=== PATIENT | female | born 1980 | race Caucasian/White ===

== ENCOUNTER 2016-09-29 12:23 | Emergency (ER) | payer MEDICAID, OTHER ==
[2016-09-29 14:08] VITALS: BP 148/92
[2016-09-29] MEDS ORDERED: Tetan/Diph/Pertus SYR(Tdap)* 0.5 ML SYR(BOOSTRIX) use SYR IM ONE (14:33)
--- NOTE | 2016-09-29 14:33 | UC ---
UC General HPI - HPI Summary HPI Summary: complaint of red area on buttocks that she noticed 2 days ago getting more red and bigger and more painful thinks she got a spider bite denies fever taking tylenol and ibuprofen for pain with some relief unsure about tetanus immunization - History of Current Complaint Chief Complaint: UC Stated Complaint: PERSONAL Time Seen by Provider: 09/29/16 14:17 Hx Obtained From: Patient - Allergy/Home Medications Allergies/Adverse Reactions: Allergies Allergy/AdvReac Type Severity Reaction Status Date / Time Bupropion [From Wellbutrin] Allergy Intermediate Hives Verified 09/29/16 14:08 Penicillins Allergy Intermediate Hives Verified 09/29/16 14:08 Home Medications: Home Medications Clonazepam [Klonopin] 0.5 mg PO SEE INSTRUCTIONS 09/29/16 [History Confirmed 03/08] PMH/Surg Hx/FS Hx/Imm Hx Previously Healthy: Yes Endocrine History Of: Reports: Thyroid Disease - thyroidectomy Denies: Diabetes Cardiovascular History Of: Denies: Cardiac Disorders, Hypertension, Pacemaker/ICD Respiratory History Of: Denies: COPD, Asthma GI/ History Of: Denies: Gastroesophageal Reflux, Ulcer Neurological History Of: Denies: TIA Psychological History Of: Reports: Anxiety Cancer History Of: Denies: Lung Cancer Other History Of: Negative For: HIV - Surgical History Surgical History: Yes Surgery Procedure, Year, and Place: novasure, c3 c4 fusion 05/2016 [facility]. . thyroidectomy - Family History Known Family History: Positive: Hypertension - Social History Occupation: Employed Full-time Lives: With Family Alcohol Use: Occasionally Alcohol Amount: 1-2 times a week Substance Use Type: Marijuana Substance Use Comment - Amount & Last Used: 09/24/16 Smoking Status (MU): Heavy Every Day Tobacco Smoker Type: Cigarettes Amount Used/How Often: 1.5 ppd Have You Smoked in the Last Year: Yes Household Exposure Type: Cigarettes - Immunization History Most Recent Influenza Vaccination: none Review of Systems Constitutional: Negative Skin: Other - spider bite Eyes: Negative ENT: Negative Respiratory: Negative Cardiovascular: Negative Gastrointestinal: Negative Genitourinary: Negative Motor: Negative Neurovascular: Negative Musculoskeletal: Negative Neurological: Negative Psychological: Negative All Other Systems Reviewed And Are Negative: Yes Physical Exam Triage Information Reviewed: Yes Appearance: No Pain Distress, Well-Nourished Vital Signs: Initial Vital Signs Temp 98.8 F 09/29/16 13:58 Pulse 116 09/29/16 13:58 Resp 18 09/29/16 13:58 BP 148/92 09/29/16 13:58 Pulse Ox 99 09/29/16 13:58 Vital Signs Reviewed: Yes Eyes: Positive: Conjunctiva Clear ENT: Positive: Normal ENT inspection Neck: Positive: No Lymphadenopathy Respiratory: Positive: Lungs clear, Normal breath sounds, No respiratory distress Cardiovascular: Positive: No Murmur, Pulses Normal, Tachycardia Abdomen Description: Positive: Nontender, Soft Bowel Sounds: Positive: Present Musculoskeletal: Positive: No Edema Neurological: Positive: Alert Psychological Exam: Normal Skin Exam: Other - right lower back 14cm x5cm area of erythema with abscess of 6cm x3cm in the center Procedures - Incision and Drainage Site: right lower back- large amount of serosanguinous exudate expressed- Anesthesia: Lidocaine Instrument(s): Scalpel Packing: Other - pressure dressing Course/Dx - Course Course Of Treatment: exam completed. I& D performed- pt tolerated well. will give tetanus and start bactrim. culture sent. will followup in 2 days with PCP for wound check - Differential Dx - Multi-Symptom Provider Diagnoses: abscess Discharge - Discharge Plan Condition: Stable Disposition: HOME Prescriptions: Sulfamethox/Trimethoprim DS* [Bactrim DS 800/160 TAB*] 1 tab PO BID #14 tab Patient Education Materials: Abscess (ED) Referrals: Sammie JIANG,Nico Quiros [Medical Doctor] - Non Staff,Doctor [Medical Doctor] - Additional Instructions: ABSCESS What is an Abscess? An abscess is a collection of pus caused by an infection. It may be a simple infected hair follicle, a boil, or an infection caused by a puncture wound, an untreated wound, or an abrasion. The abscess may come to a head and rupture. Sometimes the abscess may need to be cut open and drained to remove the pus and tissue. Symptoms May Include: Skin redness over the infected area Tight, glossy, "stretched" appearance of the skin Pain or tenderness of the area The affected area may be warm or hot to touch Thin red line (along a vein) from the abscess toward the heart Fever Treatment Recommendations: Apply warm wet compresses to the infected area several times a day. If a dressing was applied, keep it clean and dry. The healthcare provider may have prescribed an antibiotic medicine. The medicine should be taken until it is completely gone, even if you are feeling better. If you stop taking the medicine early, the infection may not be completely gone, and the medication may not work the next time. You should have the abscess rechecked by your healthcare provider as instructed by the emergency department healthcare provider. If a drain was put in the abscess, keep the dressing clean and dry. You may need to change the dressing if it becomes soaked with drainage. It is very important to follow-up with your own healthcare provider as directed. The drain should be removed and the wound rechecked in 2 to 3 days or as directed. Call Your Doctor or Return Here IF: You are not improving, or the abscess looks like it is getting worse. The wound turns red and starts to swell again, or there are red streaks coming from the wound. You develop a fever that does not go down when you take fever medicine such as acetaminophen (Tylenol). The wound continues to leak pus after the drain is removed. You have any new symptoms that worry you.
[2016-09-29] MEDS ORDERED: Lidocaine 2% W/EPI 1:100,000* 20 ML MDV ONE (14:50)
[2016-09-29] MEDS ORDERED: Acetaminophen TAB* 325 MG PO ONE (15:17)
== END 2016-09-29 15:25 | disposition home or self-care (01) ==
LOC: UCCORT 12:23
DX: L02.31 Cutaneous abscess of buttock (principal); F41.9 Anxiety disorder, unspecified; F12.90 Cannabis use, unspecified, uncomplicated; F17.210 Nicotine dependence, cigarettes, uncomplicated; Z88.0 Allergy status to penicillin; Z88.8 Allergy status to other drugs, medicaments and biological substances
CPT/HCPCS: 87070; 87077; 87186; 87205; 87640; 87641; 90471; 90715; 99212; A9270-GY; G0463

== ENCOUNTER 2017-02-20 10:14 | Emergency (ER) | payer OTHER ==
--- NOTE | 2017-02-20 11:30 | UC ---
Skin Complaint HPI - HPI Summary HPI Summary: 36 YEAR OLD PRESENTS WITH LEFT FOREARM SWELLING, TENDERNESS AND ERYTHEMA. - History of Current Complaint Time Seen by Provider: 02/20/17 11:25 Stated Complaint: SKIN CONCERN Hx Last Menstrual Period: n/a Onset/Duration: Sudden Onset Timing: Constant Onset Severity: Moderate Current Severity: Moderate Pain Scale Used: 0-10 Numeric - 5 - Allergy/Home Medications Allergies/Adverse Reactions: Allergies Allergy/AdvReac Type Severity Reaction Status Date / Time Bupropion [From Wellbutrin] Allergy Intermediate Hives Verified 09/29/16 14:08 Penicillins Allergy Intermediate Hives Verified 09/29/16 14:08 Review of Systems Constitutional: Negative Skin: Other - LEFT FOREARM SWELLING, ERYTHEMA, AND TENDER Eyes: Negative ENT: Negative Respiratory: Negative Cardiovascular: Negative Gastrointestinal: Negative Genitourinary: Negative Motor: Negative Neurovascular: Negative Musculoskeletal: Negative Neurological: Negative Psychological: Negative All Other Systems Reviewed And Are Negative: Yes PMH/Surg Hx/FS Hx/Imm Hx Other History Of: Negative For: HIV - Surgical History Surgical History: Yes Surgery Procedure, Year, and Place: novasure, c3 c4 fusion 05/2016 [facility]. . thyroidectomy - Family History Known Family History: Positive: Hypertension - Social History Alcohol Use: Occasionally Alcohol Amount: 1-2 times a week Substance Use Type: Marijuana Substance Use Comment - Amount & Last Used: 09/24/16 Smoking Status (MU): Heavy Every Day Tobacco Smoker Type: Cigarettes Amount Used/How Often: 1.5 ppd Have You Smoked in the Last Year: Yes Household Exposure Type: Cigarettes - Immunization History Most Recent Influenza Vaccination: none Physical Exam Triage Information Reviewed: Yes Eye Exam: Normal ENT Exam: Normal Dental Exam: Normal Neck exam: Normal Neck: Positive: 1 Respiratory Exam: Normal Cardiovascular Exam: Normal Abdominal Exam: Normal Musculoskeletal Exam: Normal Neurological Exam: Normal Psychological Exam: Normal Skin Exam: Other - LEFT FOREARM SWELLING, ERYTHEMA, AND TENDER Course/Dx - Differential Diagnoses - Skin Complaint Differential Diagnoses: Cellulitis - Diagnoses Provider Diagnoses: LEFT FOREARM CELLULITIS Discharge - Discharge Plan Condition: Stable Disposition: HOME Prescriptions: DOXYcycline CAP(*) [DOXYcycline 100MG CAP(*)] 100 mg PO BID #14 cap Silver Sulfadiazine 1%* [SILVadine 1%*] 1 applic TOPICAL BID #1 jar Patient Education Materials: Cellulitis (ED) Referrals: No Primary Care Phys,NOPCP [Medical Doctor] - If Needed
[2017-02-20 11:47] VITALS: BP 132/82
== END 2017-02-20 12:00 | disposition home or self-care (01) ==
LOC: UCCORT 10:14
DX: L03.114 Cellulitis of left upper limb (principal); F17.210 Nicotine dependence, cigarettes, uncomplicated
CPT/HCPCS: 99212; G0463

== ENCOUNTER 2017-03-20 13:06 | Emergency (ER) | payer OTHER ==
[2017-03-20 14:31] VITALS: BP 98/64
--- NOTE | 2017-03-20 14:57 | UC ---
Skin Complaint HPI - HPI Summary HPI Summary: patient was treated for an infection caused by a fish hook in the left arm on 02/20/17. she was responding well to the BX until 3 days ago, started getting red hot swollen arm, pain from shoulder to hand, fever, chills and her BP is low today. - History of Current Complaint Chief Complaint: UCSkin Time Seen by Provider: 03/20/17 14:40 Stated Complaint: SKIN COMPLAINT Hx Obtained From: Patient Hx Last Menstrual Period: 2 yrs ago - had novasure, embolization, & d&c ?: No Onset/Duration: Sudden Onset, Lasting Weeks Skin Exposure Onset/Duration: Weeks Ago Timing: Constant Onset Severity: Moderate Current Severity: Severe Location: Generalized - left arm Character: Swelling, Redness, Painful Aggravating: Touch Associated Signs & Symptoms: Positive: Weakness, Fever, Chills, Tenderness, Joint Swelling - left elbow Related History: Other: - fish hook - Allergy/Home Medications Allergies/Adverse Reactions: Allergies Allergy/AdvReac Type Severity Reaction Status Date / Time Bupropion [From Wellbutrin] Allergy Intermediate Hives Verified 03/20/17 14:23 Penicillins Allergy Intermediate Hives Verified 03/20/17 14:23 Home Medications: Home Medications Acetaminophen TAB* [Tylenol TAB*] 650 mg PO Q4H PRN 03/20/17 [History Confirmed 03/20/17] Ibuprofen TAB* [Advil TAB*] 800 mg PO Q6H PRN 03/20/17 [History Confirmed ] Review of Systems Constitutional: Fever, Chills, Fatigue Skin: Other - redness Eyes: Negative ENT: Negative Respiratory: Negative Cardiovascular: Negative Gastrointestinal: Negative Genitourinary: Negative Motor: Negative Neurovascular: Negative Musculoskeletal: Arthralgia, Decreased ROM, Edema, Myalgia Neurological: Headache Psychological: Negative All Other Systems Reviewed And Are Negative: Yes PMH/Surg Hx/FS Hx/Imm Hx Previously Healthy: Yes Other History Of: Negative For: HIV - Surgical History Surgical History: Yes Surgery Procedure, Year, and Place: novasure, c3 c4 fusion 05/2016 [place]. . thyroidectomy. right neck lymph node removal - Family History Known Family History: Positive: Hypertension - Social History Alcohol Use: None Alcohol Amount: 1-2 times a week Substance Use Type: None Substance Use Comment - Amount & Last Used: 2/2/17 Smoking Status (MU): Heavy Every Day Tobacco Smoker Type: Cigarettes Amount Used/How Often: 1.5 ppd Have You Smoked in the Last Year: Yes Household Exposure Type: Cigarettes - Immunization History Most Recent Influenza Vaccination: none Physical Exam Triage Information Reviewed: Yes Appearance: Well-Nourished, Ill-Appearing, Pain Distress Vital Signs: Initial Vital Signs Temp 98.9 F 03/20/17 14:24 Pulse 98 03/20/17 14:24 Resp 16 03/20/17 14:24 BP 98/64 03/20/17 14:24 Pulse Ox 99 03/20/17 14:24 Vital Signs Reviewed: Yes Eye Exam: Normal ENT Exam: Normal ENT: Positive: Hearing grossly normal, Pharynx normal, TMs normal Dental Exam: Normal Neck exam: Normal Neck: Positive: Supple, Nontender, No Lymphadenopathy Respiratory Exam: Normal Respiratory: Positive: Chest non-tender, Lungs clear, Normal breath sounds Cardiovascular: Positive: RRR, No Murmur, Other: - radial pulse strong and regular Abdominal Exam: Normal Abdomen Description: Positive: Nontender, No Organomegaly, Soft Bowel Sounds: Positive: Present Musculoskeletal Exam: Normal Musculoskeletal: Positive: Strength Limited @ - left hand, ROM Limited @ - in elbow and wrist, Edema @ - wrist to shoulder on left arm Neurological: Positive: Other: - good sensation, skin is erythemic Psychological Exam: Normal Skin: Positive: Other - 3 healing wounds on anterior left forearm, large amount of swelling in forearm and elbow, erythema from wrist to shoulder Course/Dx - Course Course Of Treatment: hx obtained, exam performed ,meds reviewed, sent to ER for further evaluation and failed abx treatment - Differential Diagnoses - Skin Complaint Differential Diagnoses: Abscess, Cellulitis, Other - sepsis - Diagnoses Provider Diagnoses: fever, chills, cellulitis of the left arm. hypotensive - Physician Notification/Consults Discussed Patient Care With: diana august NP Discharge - Discharge Plan Condition: Stable Disposition: AGAINST MEDICAL ADVICE
== END 2017-03-20 14:50 | disposition left against medical advice (07) ==
LOC: UCCORT 13:06
DX: R50.9 Fever, unspecified (principal); L03.114 Cellulitis of left upper limb; I95.9 Hypotension, unspecified; Z72.0 Tobacco use
CPT/HCPCS: 99212; G0463

== ENCOUNTER 2017-03-21 13:30 | Emergency (ER) | payer OTHER ==
--- NOTE | 2017-03-21 15:03 | UC ---
Skin Complaint HPI - HPI Summary HPI Summary: Here for re-evaluation of infection in left forearm. History reviewed: treated with doxycycline for wound infection, and re-evaluated here yesterday due to recurrent swelling in the left arm. Transferred to [facility] for evaluation, had I+D of abscess in the OR last pm by a surgeon from [place]. Wound is packed and open. Remains febrile with pain in the arm and hand, persistent low grade fever. She has not had pain medications since about 4 am, at which time she was receiving morphine and toradol injections. Was also receiving 2 antibiotics intravenously. - History of Current Complaint Chief Complaint: UCSkin Time Seen by Provider: 03/21/17 14:59 Stated Complaint: RE-CHECK LEFT FOREARM Hx Obtained From: Patient Hx Last Menstrual Period: doesn't get - had novasure, embolization, & d&c Onset/Duration: Gradual Onset - 4 weeks of grumbling infection in left forearm, initial injury approximately 02/17/17., Lasting Weeks Skin Exposure Onset/Duration: Weeks Ago - 4 Timing: Constant Onset Severity: Moderate Current Severity: Moderate Pain Intensity: 9 Pain Scale Used: 0-10 Numeric Location: Discrete - left arm Aggravating: Touch Alleviating: Other - iv antibiotics Associated Signs & Symptoms: Positive: Nausea, Weakness, Fever Related History: Trauma - Allergy/Home Medications Allergies/Adverse Reactions: Allergies Allergy/AdvReac Type Severity Reaction Status Date / Time Bupropion [From Wellbutrin] Allergy Intermediate Hives Verified 03/21/17 13:37 Penicillins Allergy Intermediate Hives Verified 03/21/17 13:37 Review of Systems Constitutional: Fever - Feels unwell, with poor rest and ongoing fatigue. Skin: Other - 6 cm incision left forearm, 1 cm open wound distal to that Eyes: Negative ENT: Negative Respiratory: Other - has felt a little short of breath since she awoke this morning. Cardiovascular: Negative Gastrointestinal: Nausea Genitourinary: Negative Motor: Negative Neurovascular: Negative Musculoskeletal: Other: - pain in the left wrist and hand. Neurological: Negative Psychological: Other - tearful and distressed. All Other Systems Reviewed And Are Negative: Yes PMH/Surg Hx/FS Hx/Imm Hx Endocrine History: Hypothyroidism - past thyroidectomy. Other History Of: Negative For: HIV - Surgical History Surgical History: Yes Surgery Procedure, Year, and Place: novasure, c3 c4 fusion 05/2016 [place] [facility]. . thyroidectomy. right neck lymph node removal - Family History Known Family History: Positive: Hypertension - Social History Lives: With Family - recently moved from [place]. Alcohol Use: None Alcohol Amount: 1-2 times a week Substance Use Type: None Substance Use Comment - Amount & Last Used: 09/24/16 Smoking Status (MU): Heavy Every Day Tobacco Smoker Type: Cigarettes Amount Used/How Often: 1.5 PPD Have You Smoked in the Last Year: Yes Household Exposure Type: Cigarettes - Immunization History Most Recent Influenza Vaccination: none Physical Exam Triage Information Reviewed: Yes Appearance: Ill-Appearing, Thin - Febrile, tearful. Vital Signs: Initial Vital Signs Temp 100.2 F 03/21/17 13:38 Pulse 98 03/21/17 13:38 Resp 16 03/21/17 13:38 BP 137/87 03/21/17 13:38 Pulse Ox 99 03/21/17 13:38 ENT: Positive: Pharynx normal Neck: Positive: Supple, Nontender, No Lymphadenopathy Respiratory: Positive: Lungs clear, Normal breath sounds Cardiovascular: Positive: RRR, No Murmur Musculoskeletal: Positive: Other: - mild diffuse swelling in the left forearm without pain with passive movement of digits. Dressing removed from left forearm. Skin Exam: Other - 6 cm incision left forearm with a large amount of packing. Erythema extending to medial proximal arm above the elbow. Acutely tender to the touch. Course/Dx - Course Course Of Treatment: Transferred to [facility]. Surgeon from [facility] performed her I+D--advised that best action is treatment in hospital setting. Remains febrile with a large wound which needs ongoing care. Level of cellulitis is such that she needs continued iv antibiotics. - Diagnoses Provider Diagnoses: cellulitis and abscess left forearm. - Physician Notification/Consults Discussed Patient Care With: Dr. Davon Tavares ER Time Discussed With Above Provider: 15:30 Discharge - Discharge Plan Condition: Stable Disposition: TRANS HIGHER LVL OF CARE FAC
[2017-03-21] MEDS ORDERED: Ondansetron ODT TAB* 4 MG PO ONE (15:17)
[2017-03-21] MEDS ORDERED: Ketorolac INJ* 60 MG/2 ML VIAL IM ONE (15:17)
[2017-03-21] MEDS ORDERED: HYDROcodone/ACETAMIN 5-325 MG* 1 TAB PO ONE (15:18)
[2017-03-21 15:49] VITALS: BP 137/88
== END 2017-03-21 15:53 | disposition short-term general hospital (02) ==
LOC: UCCORT 13:30
DX: L03.114 Cellulitis of left upper limb (principal); L02.414 Cutaneous abscess of left upper limb; R50.9 Fever, unspecified; R11.0 Nausea; R53.1 Weakness; Z88.0 Allergy status to penicillin; Z88.8 Allergy status to other drugs, medicaments and biological substances; F17.210 Nicotine dependence, cigarettes, uncomplicated
CPT/HCPCS: 96372; 99213; A9270-GY; G0463; J1885

== ENCOUNTER 2017-04-24 15:09 | Emergency (ER) | payer OTHER ==
--- NOTE | 2017-04-24 15:35 | UC ---
Skin Complaint HPI - HPI Summary HPI Summary: 36 YEAR OLD FEMALE PRESENTS WITH COMPLAINS OF ITCHY SCALP SECONDARY TO ANXIETY. - History of Current Complaint Time Seen by Provider: 04/24/17 15:33 Stated Complaint: SKIN CONCERN Hx Obtained From: Patient Hx Last Menstrual Period: doesn't get - had novasure, embolization, & d&c Onset/Duration: Gradual Onset Skin Exposure Onset/Duration: Hours Ago Timing: Intermittent Episodes Lasting: Onset Severity: Moderate Current Severity: Moderate Pain Scale Used: 0-10 Numeric - 5 Location: Diffuse - SCALP - Allergy/Home Medications Allergies/Adverse Reactions: Allergies Allergy/AdvReac Type Severity Reaction Status Date / Time Bupropion [From Wellbutrin] Allergy Intermediate Hives Verified 04/24/17 15:34 Penicillins Allergy Intermediate Hives Verified 04/24/17 15:34 Home Medications: Home Medications Carisoprodol TAB* [Soma TAB*] 1 tab TID 04/24/17 [History Confirmed 04/24/17] oxyCODONE/Acetamin 10/325(NF) [Percocet 10/325 (NF)] 1 tab Q6HR PRN 04/24/17 [ History Confirmed 04/24/17] Review of Systems Constitutional: Negative Skin: Rash Eyes: Negative ENT: Negative Respiratory: Negative Cardiovascular: Negative Gastrointestinal: Negative Genitourinary: Negative Motor: Negative Neurovascular: Negative Musculoskeletal: Negative Neurological: Negative Psychological: Negative All Other Systems Reviewed And Are Negative: Yes PMH/Surg Hx/FS Hx/Imm Hx Previously Healthy: Yes Other History Of: Negative For: HIV - Surgical History Surgical History: Yes Surgery Procedure, Year, and Place: novasure, c3 c4 fusion 05/2016 [facility]. . thyroidectomy. right neck lymph node removal - Family History Known Family History: Positive: Hypertension - Social History Alcohol Use: None Alcohol Amount: 1-2 times a week Substance Use Type: None Substance Use Comment - Amount & Last Used: 09/24/16 Smoking Status (MU): Heavy Every Day Tobacco Smoker Type: Cigarettes Amount Used/How Often: 1.5 PPD Have You Smoked in the Last Year: Yes Household Exposure Type: Cigarettes - Immunization History Most Recent Influenza Vaccination: none Physical Exam Triage Information Reviewed: Yes Vital Signs Reviewed: Yes Eye Exam: Normal ENT Exam: Normal Dental Exam: Normal Neck exam: Normal Neck: Positive: 1 Respiratory Exam: Normal Cardiovascular Exam: Normal Abdominal Exam: Normal Musculoskeletal Exam: Normal Neurological Exam: Normal Psychological Exam: Normal Skin: Positive: rashes - SCALP Course/Dx - Diagnoses Provider Diagnoses: RASH ON SCALP Discharge - Discharge Plan Condition: Stable Disposition: HOME Prescriptions: Erythromycin TAB* 500 mg PO QID #40 tab Fluocinolone Acetonide 0.01 % TOPICAL QPM PRN #1 bottle PRN Reason: Itching Patient Education Materials: Acute Rash (ED) Referrals: Jennie Estes PA [Primary Care Provider] -
[2017-04-24 15:43] VITALS: BP 119/88
== END 2017-04-24 15:57 | disposition home or self-care (01) ==
LOC: UCCORT 15:09
DX: L21.0 Seborrhea capitis (principal)
CPT/HCPCS: 99212; G0463

== ENCOUNTER 2017-04-28 17:07 | Emergency (ER) | payer OTHER | END 2017-04-28 19:00 | disposition left against medical advice (07) | LOC: UCCORT 17:07 | DX: Z09 Encounter for follow-up examination after completed treatment for conditions other than malignant neoplasm (principal); Z53.21 Procedure and treatment not carried out due to patient leaving prior to being seen by health care provider ==

== ENCOUNTER 2017-06-06 11:39 | Emergency (ER) | payer OTHER | END 2017-06-06 13:00 | disposition left against medical advice (07) | LOC: UCCORT 11:39 | DX: J02.9 Acute pharyngitis, unspecified (principal); R50.9 Fever, unspecified; Z53.21 Procedure and treatment not carried out due to patient leaving prior to being seen by health care provider ==

== ENCOUNTER 2017-07-30 18:00 | Emergency (ER) | payer OTHER ==
[2017-07-30 18:15] VITALS: BP 114/83
--- NOTE | 2017-07-30 18:30 | UC ---
Throat Pain/Nasal Seun HPI - HPI Summary HPI Summary: COUGH WHEEZING AND SINUS CONGESTION FOR TWO WEEKS, RIGHT EAR PAIN. POSSIBLE FEVER. - History of Current Complaint Chief Complaint: UCRespiratory Stated Complaint: CONGESTION Time Seen by Provider: 07/30/17 18:18 Hx Obtained From: Patient Hx Last Menstrual Period: pt states having an ablasion in 2014 and has not gotten a menses Onset/Duration: Gradual Onset, Lasting Weeks, Still Present Severity: Moderate Cough: Productive Associated Signs & Symptoms: Positive: Hoarseness, Sinus Discomfort, Nasal Discharge, Fever - Epiglottits Risk Factors Epiglottis Risk Factors: Negative - Allergies/Home Medications Allergies/Adverse Reactions: Allergies Allergy/AdvReac Type Severity Reaction Status Date / Time Bupropion [From Wellbutrin] Allergy Intermediate Hives Verified 07/30/17 18:14 Penicillins Allergy Intermediate Hives Verified 07/30/17 18:14 Home Medications: Home Medications Acetaminophen [Acetaminophen Extra Stren] 1,000 mg PO PRN 07/30/17 [History] PMH/Surg Hx/FS Hx/Imm Hx Previously Healthy: Yes Other History Of: Negative For: HIV - Surgical History Surgical History: Yes Surgery Procedure, Year, and Place: novasure, c3 c4 fusion 05/2016 [place] [facility]. . thyroidectomy. right neck lymph node removal - Family History Known Family History: Positive: Hypertension - Social History Occupation: Employed Full-time Lives: With Family Alcohol Use: Occasionally Alcohol Amount: 1-2 times a week Substance Use Type: None Substance Use Comment - Amount & Last Used: 09/24/16 Smoking Status (MU): Heavy Every Day Tobacco Smoker Type: Cigarettes Amount Used/How Often: 2 PPD Length of Time of Smoking/Using Tobacco: since age 18 Have You Smoked in the Last Year: Yes Household Exposure Type: Cigarettes Cessation Counseling: Patient Advised to Stop - Immunization History Most Recent Influenza Vaccination: none Review of Systems Constitutional: Negative Skin: Negative Eyes: Negative ENT: Ear Ache, Nasal Discharge, Sinus Congestion, Sinus Pain/Tenderness Respiratory: Cough Cardiovascular: Negative Gastrointestinal: Negative Genitourinary: Negative Motor: Negative Neurovascular: Negative Musculoskeletal: Negative Neurological: Negative Psychological: Negative Is Patient Immunocompromised?: No All Other Systems Reviewed And Are Negative: Yes Physical Exam Triage Information Reviewed: Yes Appearance: No Pain Distress, Well-Nourished, Ill-Appearing Vital Signs: Initial Vital Signs Temp 99.1 F 07/30/17 18:09 Pulse 84 07/30/17 18:09 Resp 15 07/30/17 18:09 BP 114/83 07/30/17 18:09 Pulse Ox 99 07/30/17 18:09 Vital Signs Reviewed: Yes Eye Exam: Normal ENT: Positive: Nasal congestion, Nasal drainage, TM bulging, TM dull Dental Exam: Normal Neck exam: Normal Neck: Positive: Supple, Nontender, No Lymphadenopathy Respiratory Exam: Other - COUGH Respiratory: Positive: Chest non-tender, Lungs clear, Normal breath sounds, No respiratory distress, No accessory muscle use, Wheezing Cardiovascular Exam: Normal Cardiovascular: Positive: RRR, No Murmur, Pulses Normal Abdominal Exam: Normal Abdomen Description: Positive: Nontender, No Organomegaly Musculoskeletal Exam: Normal Musculoskeletal: Positive: Strength Intact, ROM Intact Neurological Exam: Normal Psychological Exam: Normal Skin Exam: Normal Throat Pain/Nasal Course/Dx - Differential Dx/Diagnosis Differential Diagnosis/HQI/PQRI: Sinusitis, Tonsillitis, URI Provider Diagnoses: SINUSITIS; BRONCHITIS Discharge - Discharge Plan Condition: Stable Disposition: HOME Prescriptions: Albuterol HFA INHALER* [Ventolin HFA Inhaler*] 1 - 2 puff INH Q6H PRN #1 mdi PRN Reason: Wheezing DOXYcycline CAP(*) [DOXYcycline 100MG CAP(*)] 100 mg PO BID #20 cap Patient Education Materials: Sinusitis (ED), Acute Bronchitis (ED) Referrals: Jennie Estes PA [Primary Care Provider] -
== END 2017-07-30 18:28 | disposition home or self-care (01) ==
LOC: UCCORT 18:00
DX: J32.9 Chronic sinusitis, unspecified (principal); J40 Bronchitis, not specified as acute or chronic; Z88.0 Allergy status to penicillin; Z88.8 Allergy status to other drugs, medicaments and biological substances; F17.210 Nicotine dependence, cigarettes, uncomplicated
CPT/HCPCS: 99212; G0463

== ENCOUNTER 2017-10-17 13:34 | Emergency (ER) | payer OTHER ==
[2017-10-17 16:19] VITALS: BP 100/76
--- NOTE | 2017-10-17 16:23 | UC ---
Throat Pain/Nasal Seun HPI - HPI Summary HPI Summary: nonprod cough, earache - right ear, nasal congestion, sore throat for 1 week now. very anxious pcp cut her off her klonopin completely didnt wean her off and she is having anxiety attacks - would like something to calm her nerves. otc ibuprofen helped a little for ear pain - History of Current Complaint Chief Complaint: UCGeneralIllness Stated Complaint: ST/RYAN Time Seen by Provider: 10/17/17 16:19 Hx Obtained From: Patient Hx Last Menstrual Period: pt states having an ablasion in 2014 and has not gotten a menses Onset/Duration: Lasting Days Severity: Moderate Pain Intensity: 6 Associated Signs & Symptoms: Positive: Negative - Epiglottits Risk Factors Epiglottis Risk Factors: Negative - Allergies/Home Medications Allergies/Adverse Reactions: Allergies Allergy/AdvReac Type Severity Reaction Status Date / Time MS Bupropion Allergy Intermediate Hives Verified 10/17/17 16:19 [From Wellbutrin] MS Penicillins [Penicillins] Allergy Intermediate Hives Verified 10/17/17 16:19 PMH/Surg Hx/FS Hx/Imm Hx Previously Healthy: Yes Endocrine History: Thyroid Disease Other History Of: Negative For: HIV - Surgical History Surgical History: Yes Surgery Procedure, Year, and Place: novasure, c3 c4 fusion 05/2016 [facility] . thyroidectomy. right neck lymph node removal - Family History Known Family History: Positive: Hypertension - Social History Alcohol Use: Occasionally Alcohol Amount: 1-2 times a week Substance Use Type: None Substance Use Comment - Amount & Last Used: 09/24/16 Smoking Status (MU): Heavy Every Day Tobacco Smoker Type: Cigarettes Amount Used/How Often: 2 PPD Length of Time of Smoking/Using Tobacco: since age 18 Have You Smoked in the Last Year: Yes Household Exposure Type: Cigarettes - Immunization History Most Recent Influenza Vaccination: none Review of Systems Constitutional: Negative Skin: Negative Eyes: Negative ENT: Sore Throat, Ear Ache Respiratory: Cough - nonprod Cardiovascular: Negative Gastrointestinal: Negative Genitourinary: Negative Musculoskeletal: Negative Neurological: Headache - d/t sinus - frontal h/a Psychological: Anxious - very Is Patient Immunocompromised?: No All Other Systems Reviewed And Are Negative: Yes Physical Exam Triage Information Reviewed: Yes Appearance: Ill-Appearing Vital Signs: Initial Vital Signs Temp 98.4 F 10/17/17 16:13 Pulse 93 10/17/17 16:13 Resp 16 10/17/17 16:13 BP 100/76 10/17/17 16:13 Pulse Ox 99 10/17/17 16:13 Eye Exam: Normal ENT: Positive: Pharyngeal erythema, TM bulging - sonny, TM red - right ear Respiratory Exam: Normal Cardiovascular Exam: Normal Neurological: Positive: Alert Psychological Exam: Normal Skin Exam: Normal Throat Pain/Nasal Course/Dx - Course Course Of Treatment: ear infection - right ear. strep per exam. take abx as directed - take with food to reduce gi upset. increase fluid intake daily while on abx to prevent dehydration. take ibuprofen 600 mg po every 6 hours prn ear pain/fever. will give 5 day supply klonopin once daily need to f/u with pcp for anxiety. f/u if symptoms not resolving - Differential Dx/Diagnosis Provider Diagnoses: strep throat/otitis media - right ear/anxiety Discharge - Discharge Plan Condition: Good Disposition: HOME Prescriptions: Clarithromycin TAB* [Biaxin 500 MG TAB*] 500 mg PO BID 10 Days #20 tab clonazePAM TAB(*) [KlonoPIN TAB(*)] 1 mg PO BEDTIME PRN 5 Days #5 tab MDD one PRN Reason: Anxiety Patient Education Materials: Strep Throat (ED), Ear Infection (ED), Anxiety (ED ) Referrals: Jennie Estes PA [Primary Care Provider] - 1 Week
== END 2017-10-17 16:50 | disposition home or self-care (01) ==
LOC: UCCORT 13:34
DX: J02.0 Streptococcal pharyngitis (principal); H66.91 Otitis media, unspecified, right ear; F41.9 Anxiety disorder, unspecified; Z88.1 Allergy status to other antibiotic agents; Z88.8 Allergy status to other drugs, medicaments and biological substances; F17.210 Nicotine dependence, cigarettes, uncomplicated
CPT/HCPCS: 99212; G0463